=== PATIENT | female | born 1940 | race Caucasian/White ===

== ENCOUNTER → 2018-11-09 12:39 | Outpatient (CLI) | payer MEDICARE, SELFPAY ==
--- NOTE | 2018-11-09 | XR_ITS ---
XR chest 2V HISTORY: ITS.REASON: PERSISTENT COUGH-- LTRIB PAIN ORDERING PHYSICIAN: Tuyet Urrutia PATIENT AGE: 78 years COMPARISON: 11/15/2007 FINDINGS: Unremarkable cardiovascular structures. There is an oval soft tissue density in the right suprahilar region measuring 4 x 2.8 cm consistent with a right upper lobe mass. Suspicious for neoplasm. Chest CT with contrast suggested for further evaluation. Surgical clips are present in the left axilla with increased density over both thoraces consistent with breast implants. IMPRESSION: 4 x 2.8 cm right suprahilar mass highly suspicious for neoplasm. Suggest CT with contrast for further evaluation.
== END ==
PROVIDERS: PCP Internal Medicine Adolescent Medicine; Visit Provider Nurse Practitioner Family
DX: R05 Cough (principal); R07.81 Pleurodynia
CPT/HCPCS: 71046

== ENCOUNTER → 2018-11-11 14:38 | Outpatient (CLI) | payer MEDICARE, SELFPAY ==
--- NOTE | 2018-11-11 | CT_ITS ---
CT chest w con HISTORY: Lung mass, bronchitis with cough, abnormal chest x-ray ITS.REASON: LUNG MASS ORDERING PHYSICIAN: Tuyet Urrutia PATIENT AGE: 78 years COMPARISON: None TECHNIQUE: Axial images obtained following the administration of 75 mL of Optiray 350 . Sagittal, and coronal reformatted images are also generated and reviewed. All CT scans at the facility use one or more dose reduction, viz: automated exposure control, ma/kV adjustment per patient size (including targeted exams where dose is matched to indication, i.e. head), or iterative reconstruction technique. FINDINGS: There are bilateral subpectoral breast implants. There are scattered small nodes in the mediastinum measuring up to 1.4 x 1.1 cm in the precarinal region. Coronary artery calcifications are present. There is normal heart size with no evidence of pericardial effusion. No obvious axillary or supraclavicular adenopathy. There is a spiculated right upper lobe mass which measures up to 3.9 cm AP, 3.3 cm transverse, and 3.2 cm cephalad to caudad. The mass has spiculations which extend to the chest wall anteriorly and to the right hilum posteriorly. There are some coarse calcifications within the mass. This abuts the right minor fissure and may actually extend into the superior aspect of the right middle lobe with some spiculations extending into the superior aspect of the right middle lobe. This is highly suspicious for lung cancer. There is thickening along the minor fissure laterally may be due to some subpleural atelectasis. There are scattered calcified granulomas in both lungs. Fibrotic or atelectatic changes present in the left lower lobe. No pleural effusions. Upper abdominal images show irregular contour of the liver consistent with cirrhosis. There are a few periportal lymph nodes present measuring up to 2 x 1.2 cm. IMPRESSION: 1. Spiculated 3.9 x 3.3 cm right upper lobe mass with extension into the minor fissure and with spiculations into the superior aspect of the right middle lobe. This is highly suspicious for lung cancer. The lesion occludes the anterior segmental bronchus of the right upper lobe and should be readily accessible for biopsy via bronchoscopy and would NOT be safely accessible by percutaneous CT directed biopsy. 2. There is a borderline sized mediastinal lymph node at 1.4 x 1 cm.. No obvious hilar adenopathy 3. Upper abdominal images suggests cirrhosis
[2018-11-11 15:27] LABS: Blood Urea Nitrogen 19 mg/dL (7-18); Estimated Glomerular Filt Rate 69 ml/min (>60); GFR (African American) 84 ML/MIN (>60)
== END ==
PROVIDERS: Visit Provider Nurse Practitioner Family
DX: R91.8 Other nonspecific abnormal finding of lung field (principal)
CPT/HCPCS: 36415; 71260; 82565; 84520; Q9967

== ENCOUNTER 2019-06-21 10:08 | Outpatient (RCR) | payer MEDICARE, SELFPAY | END 2019-06-21 10:10 | disposition home or self-care (01) | LOC: PT 10:08 | PROVIDERS: Visit Provider Thoracic Surgery (Cardiothoracic Vascular Surgery) | DX: C34.90 Malignant neoplasm of unspecified part of unspecified bronchus or lung (principal) | CPT/HCPCS: G0237; G0238 ==

== ENCOUNTER → 2019-07-10 09:11 | Outpatient (CLI) | payer MEDICARE, SELFPAY ==
--- NOTE | 2019-07-10 09:38 | CT_ITS ---
PROCEDURE: CT ABDOMEN PELVIS W CON CLINICAL INDICATION: LUNG CANCER Follow-up lung cancer COMPARISON: No exams were available for comparison TECHNIQUE: IV Contrast: 75ML OPTIRAY 350 Oral Contrast the none Axial images obtained with sagittal and coronal reformats. All CT scans at the facility use one or more dose reduction, viz: automated exposure control, ma/kV adjustment per patient size (including targeted exams where dose is matched to indication, i.e. head), or iterative reconstruction technique. FINDINGS: LOWER THORAX: Please see chest CT report for lower thorax descriptions ABDOMEN & PELVIS: The liver margin is irregular with mild prominence of the left hepatic lobe consistent with cirrhosis. No focal liver lesion is evident. There is a gallstone noted The spleen, adrenal glands, and pancreas have an unremarkable appearance. No renal or ureteral calculi. There is a cyst along the lower pole of the left kidney at 2.3 cm. No intestinal obstruction or free air is evident. No evidence appendicitis. There is diverticulosis of the descending and sigmoid colon but no evidence of diverticulitis. No adenopathy. No abdominal or pelvic mass or abnormal fluid collection. No bony destructive process. No lytic or blastic change. 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 angiogram may confirm. Calcific plaque is present at the ostium of the celiac artery. IMPRESSION: 1. No convincing evidence of abdominal or pelvic metastasis. 2. Cirrhotic appearance of the liver. 3. 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 angiogram may better delineate if clinically desired. Dictated by: Johnnie Bush MD 07/12/2019 06:25 Electronically signed by Johnnie Bush MD in [place] 07/12/2019 06:25
--- NOTE | 2019-07-10 09:38 | CT_ITS ---
PROCEDURE: CT CHEST W CON CLINCAL INDICATION: LUNG CANCER Follow-up lung cancer COMPARISON: CHESTW CT chest w con from 11/11/2018 CT ABDOMEN PELVIS W CON from 07/10/2019 TECHNIQUE: IV Contrast: 75ml Optiray 350 Axial images obtained with sagittal and coronal reformats. All CT scans at the facility use one or more dose reduction, viz: automated exposure control, ma/kV adjustment per patient size (including targeted exams where dose is matched to indication, i.e. head), or iterative reconstruction technique. FINDINGS: There is a 10 mm hypodense nodule in the right lobe of the thyroid gland. There has been an interval right upper lobectomy. Loculated fluid is present in the pleural space in the right upper hemithorax posteriorly. There is volume loss of the right hemithorax with elevated right hemidiaphragm as expected status post lobectomy. Small right pleural effusion is present with atelectatic changes in the right lung base. Changes of COPD noted. Irregular linear increased density is present in the upper lung vickers medially on both sides and may be related to postradiation changes. Volume loss/atelectatic changes also a consideration. No obvious mediastinal or hilar adenopathy. Coronary artery calcifications are present. No evidence of aortic aneurysm. There is mild thickening of the interstitium in the subpleural regions of the left upper lobe and left lower lobe. This is nonspecific. No suspicious new nodules are evident. Status post prior breast implant placement. There is an area of sclerosis involving the right 8th rib laterally. This could be due to a healing rib fracture.. This is not readily apparent on the previous exam. Cannot exclude the possibility of a blastic focus. Continued follow-up suggested. IMPRESSION: 1. Interval right upper lobectomy with postsurgical changes as described above. 2. Increased density in the medial aspect of the upper lung vickers which may be due to postradiation changes or atelectasis. 3. Sclerotic focus in the right 8th rib laterally which could be due to healing rib fracture or an early blastic lesion. Dictated by: Johnnie Bush MD 07/12/2019 06:18 Electronically signed by Johnnie Bush MD in [place] 07/12/2019 06:18
[2019-07-10 09:55] LABS: Basophils # 0.1 K/mm3 (0-0.2); Basophils % 0.6 % (0.1-2.0); Eosinophils # 0.4 K/mm3 (0.0-0.4); Eosinophils % 5.1 % (0.1-12.0); Hematocrit 42.5 % (37.0-47.0); Hemoglobin 13.4 g/dL (12.2-16.2); Lymphocytes % 24.7 % (10-50); Mean Corpuscular HGB Conc 31.5 g/dL (31.8-35.4); Mean Corpuscular Volume 92.4 fl (81-99); Mean Platelet Volume 7.9 fl (7.4-10.4); Monocytes # 0.5 K/mm3 (0.1-1.0); Monocytes % 5.6 % (1.7-9.3); Neutrophils # 5.3 K/mm3 (1.8-7.8); Neutrophils % 64.1 % (37.0-80.0); Platelet Count 267 K/mm3 (142-424); Red Cell Distribution Width 15.7 % (11.5-17.5); White Blood Count 8.3 K/mm3 (4.8-10.8)
[2019-07-10 10:30] LABS: Alanine Aminotransferase 25 U/L (12-78); Albumin Level 3.5 gm/dL (3.4-5.0); Albumin/Globulin Ratio 0.9 (1.1-1.8); Alkaline Phosphatase 137 U/L (46-116); Aspartate Amino Transferase 26 U/L (15-37); Bilirubin,Total 0.4 mg/dL (0.2-1.0); Blood Urea Nitrogen 13 mg/dL (7-18); Calcium 9.3 mg/dL (8.5-10.1); Carbon Dioxide 29 mmol/L (21.0-32.0); Chloride 101 mmol/L (98-107); Creatinine,Serum 0.65 mg/dL (0.55-1.02); Estimated Glomerular Filt Rate 88 ml/min (>60); GFR (African American) 106 ML/MIN (>60); Globulin 4.1 gm/dl (1.3-3.2); Glucose 96 mg/dL (74-106); Sodium 139 mmol/L (136-145); Total Protein,Serum 7.6 gm/dL (6.4-8.2)
== END ==
PROVIDERS: PCP Internal Medicine Adolescent Medicine; Visit Provider Internal Medicine
DX: C34.01 Malignant neoplasm of right main bronchus (principal)
CPT/HCPCS: 36415; 71260; 74177; 80053; 85025; Q9967

== ENCOUNTER → 2019-09-05 07:54 | Outpatient (CLI) | payer MEDICARE, SELFPAY ==
[2019-09-05 08:12] LABS: Basophils # 0.1 K/mm3 (0-0.2); Basophils % 0.8 % (0.1-2.0); Eosinophils # 0.4 K/mm3 (0.0-0.4); Eosinophils % 4.1 % (0.1-12.0); Hematocrit 42.2 % (37.0-47.0); Hemoglobin 13.6 g/dL (12.2-16.2); Lymphocytes # 2.3 K/mm3 (0.7-4.5); Lymphocytes % 26.4 % (10-50); Mean Corpuscular HGB Conc 32.2 g/dL (31.8-35.4); Mean Corpuscular Hemoglobin 29.4 pg (27.0-31.2); Mean Corpuscular Volume 91.3 fl (81-99); Monocytes # 0.5 K/mm3 (0.1-1.0); Monocytes % 5.6 % (1.7-9.3); Neutrophils # 5.4 K/mm3 (1.8-7.8); Neutrophils % 63.1 % (37.0-80.0); Platelet Count 322 K/mm3 (142-424); Red Blood Count 4.62 M/mm3 (4.20-5.40); White Blood Count 8.5 K/mm3 (4.8-10.8)
[2019-09-05 08:26] LABS: Activated Partial Thrombo Time 25.2 seconds (23.6-34.0); INR 0.95 (0.9-1.1); Prothrombin Time 9.9 seconds (9.4-11.8)
[2019-09-05 09:04] LABS: Blood Urea Nitrogen 15 mg/dL (7-18); Calcium 9.4 mg/dL (8.5-10.1); Carbon Dioxide 25 mmol/L (21.0-32.0); Chloride 103 mmol/L (98-107); Creatinine,Serum 0.76 mg/dL (0.55-1.02); Estimated Glomerular Filt Rate 73 ml/min (>60); GFR (African American) 89 ML/MIN (>60); Glucose 110 mg/dL (74-106); Sodium 139 mmol/L (136-145)
== END ==
PROVIDERS: Visit Provider Surgery
DX: Z01.812 Encounter for preprocedural laboratory examination (principal); Z51.81 Encounter for therapeutic drug level monitoring
CPT/HCPCS: 36415; 80048; 85025; 85610; 85730

== ENCOUNTER → 2019-09-26 15:27 | Outpatient (POV) | payer MEDICARE, SELFPAY | PROVIDERS: Visit Provider Dermatology | DX: Z00.00 Encounter for general adult medical examination without abnormal findings (principal) ==

== ENCOUNTER → 2019-10-05 07:12 | Outpatient (CLI) | payer MEDICARE, SELFPAY ==
[2019-10-05 07:54] LABS: Basophils # 0.1 K/mm3 (0-0.2); Basophils % 0.6 % (0.1-2.0); Eosinophils # 0.3 K/mm3 (0.0-0.4); Eosinophils % 3.3 % (0.1-12.0); Hematocrit 42.1 % (37.0-47.0); Hemoglobin 13.3 g/dL (12.2-16.2); Lymphocytes # 1.8 K/mm3 (0.7-4.5); Lymphocytes % 19.3 % (10-50); Mean Corpuscular HGB Conc 31.7 g/dL (31.8-35.4); Mean Corpuscular Hemoglobin 29.8 pg (27.0-31.2); Mean Corpuscular Volume 93.9 fl (81-99); Monocytes # 0.5 K/mm3 (0.1-1.0); Monocytes % 5.1 % (1.7-9.3); Neutrophils # 6.8 K/mm3 (1.8-7.8); Neutrophils % 71.7 % (37.0-80.0); Platelet Count 284 K/mm3 (142-424); Red Blood Count 4.48 M/mm3 (4.20-5.40); Red Cell Distribution Width 14.2 % (11.5-17.5); White Blood Count 9.4 K/mm3 (4.8-10.8)
[2019-10-05 08:55] LABS: Alanine Aminotransferase 31 U/L (9-52); Albumin Level 3.5 g/dL (3.4-5.0); Albumin/Globulin Ratio 0.9 (1.1-1.8); Alkaline Phosphatase 124 U/L (46-116); Anion Gap 17.5 mEq/L (5-15); Aspartate Amino Transferase 24 U/L (15-37); Bilirubin,Total 0.4 mg/dL (0.2-1.0); Blood Urea Nitrogen 23 mg/dL (7-18); Calcium 9.2 mg/dL (8.5-10.1); Carbon Dioxide 26 mmol/L (21.0-32.0); Chloride 106 mmol/L (98-107); Estimated Glomerular Filt Rate 69 ml/min (>60); GFR (African American) 84 ML/MIN (>60); Globulin 3.9 gm/dl (1.3-3.2); Glucose 117 mg/dL (74-106); Potassium 4.5 mmoL/L (3.5-5.1); Sodium 145 mmol/L (137-145); Total Protein,Serum 7.4 g/dL (6.4-8.2)
== END ==
PROVIDERS: PCP Nurse Practitioner Family; Visit Provider Internal Medicine
DX: C34.01 Malignant neoplasm of right main bronchus (principal)
CPT/HCPCS: 36415; 80053; 85025

== ENCOUNTER → 2019-10-06 08:41 | Outpatient (CLI) | payer MEDICARE, SELFPAY ==
--- NOTE | 2019-10-06 08:45 | CT_ITS ---
PROCEDURE: CT SOFT TISSUE NECK W CON CLINICAL HISTORY: LUNG CANCER, ENLARGED LYMPH NODES Lung cancer, evaluate for possible metastatic disease in the neck with palpable nodule in the neck COMPARISON: No exams were available for comparison TECHNIQUE: Oral Contrast: None IV Contrast: 50 mL Optiray 350 Axial images obtained with sagittal and coronal reformats. All CT scans at the facility use one or more dose reduction, viz: automated exposure control, ma/kV adjustment per patient size (including targeted exams where dose is matched to indication, i.e. head), or iterative reconstruction technique. FINDINGS: A BB is placed along the left neck marking a palpable abnormality. No adenopathy or neck mass is evident. No mass evident deep to the placed BB. There is minimal asymmetry with some fullness at the base of the tongue on the left. Correlation with direct visualization is suggested. No discrete mass. The nasopharynx has an unremarkable appearance as does the larynx. There are degenerative changes in the cervical spine. IMPRESSION: 1. Minimal fullness of the base of the tongue on the left. This is nonspecific. Correlation with physical exam is suggested. 2. Otherwise negative CT scan of the neck Dictated by: Johnnie Bush MD 10/08/2019 08:07 Electronically signed by Johnnie Bush MD in [place] 10/08/2019 08:07
--- NOTE | 2019-10-06 08:45 | CT_ITS ---
PROCEDURE: CT ABDOMEN PELVIS W CON CLINICAL INDICATION: LUNG CANCER Follow-up lung cancer COMPARISON: CT ABDOMEN PELVIS W CON from 07/10/2019 CT CHEST W CON from 10/06/2019 TECHNIQUE: IV Contrast: 50ml Optiray 350 Oral Contrast none Axial images obtained with sagittal and coronal reformats. All CT scans at the facility use one or more dose reduction, viz: automated exposure control, ma/kV adjustment per patient size (including targeted exams where dose is matched to indication, i.e. head), or iterative reconstruction technique. FINDINGS: LOWER THORAX: Please see chest CT report ABDOMEN & PELVIS: The liver has an irregular contour consistent with cirrhosis. No focal liver lesions are evident. The spleen, adrenal glands, and pancreas have an unremarkable appearance. There is a 2.4 cm cyst along the lower pole of the left kidney unchanged. No intestinal obstruction or free air. There is a mild amount of retained colonic feces. No evidence of appendicitis. There is diverticulosis of the sigmoid colon but no evidence of diverticulitis. No acute bony anomalies are evident. Ostial stenosis of the celiac artery once again noted. IMPRESSION: Overall no significant change with no convincing evidence of metastatic disease. Dictated by: Johnnie Bush MD 10/08/2019 08:27 Electronically signed by Johnnie Bush MD in [place] 10/08/2019 08:27
--- NOTE | 2019-10-06 08:45 | CT_ITS ---
PROCEDURE: CT CHEST W CON CLINCAL INDICATION: LUNG CANCER Follow-up lung cancer COMPARISON: CT CHEST W CON from 07/10/2019 CT ABDOMEN PELVIS W CON from 10/06/2019 TECHNIQUE: IV Contrast: 50 mL Optiray 350 Axial images obtained with sagittal and coronal reformats. All CT scans at the facility use one or more dose reduction, viz: automated exposure control, ma/kV adjustment per patient size (including targeted exams where dose is matched to indication, i.e. head), or iterative reconstruction technique. FINDINGS: HEART AND MEDIASTINAL STRUCTURES: Small 1 cm nodule in the right lobe of the thyroid gland once again noted probably not significantly changed. There is coronary artery calcifications with normal heart size. No evidence of pericardial effusion. No mediastinal or hilar mass. LUNGS AND PLEURAL SPACES: COPD. Postsurgical changes from right upper lobectomy with some residual pleural thickening in the right apex posteriorly. There is some scarring in the right lower lobe medially. Fibrotic changes are present in the lingula in the superior segment of the left lower lobe. No developing pulmonary nodules apparent. No effusions BONY STRUCTURES: No acute bony abnormalities apparent. UPPER ABDOMEN: Please see abdomen report ADDITIONAL FINDINGS: Bilateral breast prosthesis remain in place IMPRESSION: 1. Overall stable CT appearance of the chest. Postsurgical changes from right upper lobectomy with COPD and scattered areas of scarring. Dictated by: Johnnie Bush MD 10/08/2019 08:19 Electronically signed by Johnnie Bush MD in [place] 10/08/2019 08:19
== END ==
PROVIDERS: PCP Nurse Practitioner Family; Visit Provider Internal Medicine
DX: C34.01 Malignant neoplasm of right main bronchus (principal)
CPT/HCPCS: 70491; 71260; 74177; Q9967

== ENCOUNTER → 2020-04-30 09:52 | Outpatient (POV) | payer MEDICARE, SELFPAY | PROVIDERS: Visit Provider Dermatology | DX: Z00.00 Encounter for general adult medical examination without abnormal findings (principal) ==

== ENCOUNTER → 2020-05-21 13:26 | Outpatient (POV) | payer MEDICARE, SELFPAY | PROVIDERS: Visit Provider Dermatology | DX: Z00.00 Encounter for general adult medical examination without abnormal findings (principal) ==

== ENCOUNTER 2021-03-13 13:42 | Emergency (ER) | payer MEDICARE, SELFPAY ==
[2021-03-13 14:44] VITALS: PULSE 118; RESP 18; TEMP 37.1; O2SAT 97; BMI 28.3
[2021-03-13 15:04] VITALS: BP 000/00; PULSE 118; RESP 18; TEMP 37.1
--- NOTE | 2021-03-13 15:05 | PC.NURSE ---
pt refuses a bp reading.
--- NOTE | 2021-03-13 15:07 | HMH.EDUTC ---
[facility] [place] Clinical Impression: Skin tear of left lower leg without complication Qualifiers: Encounter type: initial encounter Qualified Code(s): S81.812A - Laceration without foreign body, left lower leg, initial encounter Disposition: Home, Self-Care Condition on Discharge: Good Instructions: DI for Avulsion Laceration (Not Requiring Sutures) Additional Instructions: Keep the affected area clean and dry. Follow up with your regular doctor. apply the topical antibiotics (mupirocin) as directed. Discuss the antibiotic ointment (mupirocin) with your pharmacist. I worry about you extensive allergies. If the pharmacist has any recommendations they could call me here to get an order. GO TO THE ER FOR ANY WORSENING SYMPTOMS Prescriptions: Mupirocin [Bactroban 2% Ointment 22gm tube] 1 applicatio TP TID 7 Days #1 tube Transmission Status: Received by [id number] Referrals: Tuyet Urrutia APRN [Primary Care Provider] - Time of Disposition: 15:13 Medical Decision Making - Medical Records Medical records reviewed: No: I reviewed the patient's medical records. - Peterson Inquiry Pt receiving controlled substance: No Vital Signs: 03/13/21 14:44 03/13/21 15:04 Temperature 98.7 F 98.7 F Temperature Source Oral Pulse Rate 118 H Pulse Rate [Left] 118 H Respiratory Rate 18 18 Blood Pressure 000/00 L 02 Sat by Pulse Oximetry 97 Medical Decision Narrative: The wound was cleansed with sterile ns. It only involves the top layer of skin. No redness, drainage, swelling or other sign of infection is noted. [facility] [place] - General Stated complaint: fall 03/11 lt monterroso bleeding Time Seen by Provider: 03/13/21 14:55 Mode of Arrival: Ambulatory Source of Information: Patient Limitations: No Limitations Description of Symptoms (Recalled from Triage Doc. by RN): pt fell down wooden steps tues. afternoon. she presents with a lac on her L leg HEENT Symptoms (Recalled from RN notes): No Resp Symptoms (Recalled from RN notes): No Skin Symptoms (Recalled from RN notes): Yes (lac to L leg) MS Symptoms (Recalled from RN notes): No Functional Status (Recalled from RN notes): na - History of Present Illness Provider Complaint: She states that she fell 4 days ago and received a skin tear to her left monterroso area. She is here to have it checked because it has continued to ooze blood without a dressing on it. She is also worried about it being infected. She denies other injury. She states that her tetanus immunization is up to date and she thinks that she is allergic to tetanus shots anyway. - Related Data Previous Rx's Medication Instructions Recorded Mupirocin [Bactroban 2% Ointment 1 applicatio TP TID 7 Days #1 tube 03/13/21 22gm tube] - Worker's Comp Is this a Worker's Comp case?: No [facility] History - Hepatitis A Screen Drug use history?: No High risk sexual behaviors?: No History of sexually transmitted infection?: No Currently employed?: No Childcare worker?: No Do you have indoor plumbing?: Yes Do you have electricity?: Yes Attestation statement:: This patient has been screened for Hepatitis A risk factors. I have reviewed the patient's past medical history: Yes ROS Obtained: Yes All systems reviewed & no additional complaints - Constitutional Constitutional: Denies chills, Denies fever(s) - Musculoskeletal Musculoskeletal: Denies joint pain, Denies back pain - Integumentary/Breasts Skin/Breast: Reports as per HPI - Neurologic Neurologic: Denies tingling/numbness/burning sensations Physical Exam - General General appearance: alert, in no apparent distress - Head Head exam: atraumatic, normocephalic, normal inspection - Eye Eye exam: Present: normal appearance, PERRL, EOMI - ENT ENT exam: Present: normal exam, normal oropharynx, mucous membranes moist, TM's normal bilaterally, normal external ear exam - Neck Neck exam: Present: normal inspection, full
== END 2021-03-13 15:24 | disposition home or self-care (01) ==
PROVIDERS: Emergency Provider Nurse Practitioner Family; PCP Nurse Practitioner Family
DX: S81.812A Laceration without foreign body, left lower leg, initial encounter (principal); W10.9XXA Fall (on) (from) unspecified stairs and steps, initial encounter; Y92.019 Unspecified place in single-family (private) house as the place of occurrence of the external cause
CPT/HCPCS: G0463; 99202

== ENCOUNTER 2021-06-15 14:20 | Inpatient (IN) | payer MEDICARE, SELFPAY ==
--- NOTE | 2021-06-15 13:58 | ECG_ITS ---
APPROVED REPORT Exam: Resting ECG HR:131 bpm ECG Measurements Heart Rate 131 AXES VT 154 P 74 QRSd 76 QRS -79 QT 290 T 63 QTc 428 Conclusion Sinus tachycardia Possible Left atrial enlargement Pulmonary disease pattern RSR' or QR pattern in V1 suggests right ventricular conduction delay Left anterior fascicular block ST elevation, consider inferior injury or acute infarct ACUTE AK Consider right ventricular involvement in acute inferior infarct Abnormal ECG Electronically signed by : Winston Roman MD 06/15/2021 20:29:21
[2021-06-15 14:07] VITALS: PULSE 127; RESP 36; TEMP 36.8; O2SAT 80; BMI 28.3
--- NOTE | 2021-06-15 14:30 | CT_ITS ---
PROCEDURE INFORMATION: Exam: CTA Chest With Contrast Exam date and time: 06/15/2021 2:30 PM Age: 81 years old Clinical indication: Dyspnea and shortness of breath; Additional info: Dyspnea and hypoxia// previous breast cancer TECHNIQUE: Imaging protocol: Computed tomographic angiography of the chest with contrast. 3D rendering (Not supervised by radiologist): MIP and/or 3D reconstructed images were created by the technologist. Radiation optimization: All CT scans at this facility use at least one of these dose optimization techniques: automated exposure control; mA and/or kV adjustment per patient size (includes targeted exams where dose is matched to clinical indication); or iterative reconstruction. Contrast material: ISOVUE 370; Contrast volume: 75 ml; Contrast route: INTRAVENOUS (IV); COMPARISON: CT CHEST W CON 10/06/2019 9:18 AM FINDINGS: Pulmonary arteries: There are extensive pulmonary emboli in the right and left distal main pulmonary arteries and throughout their branches which are distended with thrombus. Aorta: No thoracic aortic aneurysm or dissection.There is calcified atheromatous plaque in the thoracic aorta and coronary arteries. Lungs: Right upper lobectomy is again noted with stable pleuroparenchymal scarring posteriorly at the apex. Pleuroparenchymal scarring is again seen superior segment of left lower lobe. Pleural spaces: Unremarkable. No pneumothorax. No pleural effusion. Heart: There is evidence of right ventricular strain. No significant cardiomegaly or pericardial effusion. Lymph nodes: Unremarkable. No enlarged lymph nodes. Liver: Possible cirrhosis due to lobulated hepatic margin. Bones/joints: Skeletal degeneration. Soft tissues: Left mastectomy, bilateral breast prostheses and left axillary clips. IMPRESSION: Extensive bilateral pulmonary emboli including the right and left main pulmonary arteries with evidence of right heart strain.
--- NOTE | 2021-06-15 14:49 | PC.NURSE ---
Pt placed on vapotherm from [facility] per 20L 60%
[2021-06-15 15:34] LABS: Coronavirus 19, PCR Not Detected (NotDetected); Influenza A, PCR Not Detected (NotDetected); Influenza B, PCR Not Detected (NotDetected)
[2021-06-15 15:40] LABS: Basophils # 0.1 K/mm3 (0-0.2); Basophils % 0.6 % (0.1-2.0); Eosinophils % 0.2 % (0.1-12.0); Hematocrit 45.8 % (37.0-47.0); Hemoglobin 14.9 g/dL (12.2-16.2); Lymphocytes # 1.8 K/mm3 (0.7-4.5); Lymphocytes % 11.4 % (10-50); Mean Corpuscular HGB Conc 32.5 g/dL (31.8-35.4); Mean Corpuscular Volume 95.4 fl (81-99); Mean Platelet Volume 9.2 fl (7.4-10.4); Monocytes # 0.8 K/mm3 (0.1-1.0); Monocytes % 4.8 % (1.7-9.3); Neutrophils # 13.1 K/mm3 (1.8-7.8); Platelet Count 256 K/mm3 (142-424); Red Cell Distribution Width 14.5 % (11.5-17.5); White Blood Count 15.8 K/mm3 (4.8-10.8)
[2021-06-15 15:43] LABS: Chloride 101 mmol/L (98-107); MANUAL DIFFERENTIAL MANUAL DIFFERENTIAL (MANUAL DIFF); Potassium 4.3 mmoL/L (3.5-5.1); Sodium 139 mmol/L (136-145)
[2021-06-15 15:45] LABS: Alanine Aminotransferase 22 U/L (12-78); Aspartate Amino Transferase 34 U/L (14-36); Blood Urea Nitrogen 14 mg/dl (7-17); Creatinine Clearance Estimated 54 mL/min (50-200); Estimated Glomerular Filt Rate 69 ml/min (>60); GFR (African American) 83 ML/MIN (>60)
[2021-06-15 15:46] LABS: Albumin Level 4.1 g/dl (3.5-5.0); Albumin/Globulin Ratio 1.2 (1.1-1.8); Alkaline Phosphatase 131 U/L (38-126); Anion Gap 18.3 mEq/L (5-15); Bilirubin,Total 0.5 mg/dl (0.2-1.3); Calcium 8.9 mg/dl (8.4-10.2); Carbon Dioxide 24 mmol/L (22.0-30.0); Globulin 3.3 g/dL (1.3-3.2); Glucose 252 mg/dl (74-100); Total Protein,Serum 7.4 g/dl (6.3-8.2)
[2021-06-15 15:53] LABS: Lymphocytes % 16 % (10-50); Monocytes % 7 % (2-9); Neutrophils % 77 % (42-76); Platelet Estimate Normal; RBC Morphology Normal; Total Cells Counted 100
[2021-06-15 16:11] LABS: Troponin I 0.32 ng/ml (0.00-0.034)
[2021-06-15 16:16] LABS: Thyroid Stimulating Hormone 2.04 uIU/mL (0.465-4.68)
[2021-06-15 17:10] LABS: Prothrombin Time 11.3 seconds (10.1-12.5)
--- NOTE | 2021-06-15 17:43 | HMH.EDGENADL ---
ED Disposition Clinical Impression: Pulmonary embolism Qualifiers: Pulmonary embolism type: other Chronicity: acute Acute cor pulmonale presence: without acute cor pulmonale Qualified Code(s): I26.99 - Other pulmonary embolism without acute cor pulmonale Disposition: Admitted As Inpatient Condition on Discharge: Fair Referrals: Tuyet Urrutia APRN [Primary Care Provider] - - Critical Care Critical Care Time: No Attestation: On 06/15/21, the high probability of a clinically significant, sudden or life threatening deterioration of the following system(s) required my full and direct attention, intervention and personal management. The time I documented below is in addition to time spent performing reported procedures but includes the following listed in this critical care notation. Medical Decision Making - Peterson Inquiry Pt receiving controlled substance: No Vital Signs: 06/15/21 14:07 Temperature 98.2 F Temperature Source Oral Pulse Rate [Right Radial] 127 H Respiratory Rate 36 H 02 Sat by Pulse Oximetry 80 L Oxygen Delivery Method Room Air - Lab Data Lab Results 06/15/21 14:05: SARS-CoV-2 (PCR) Not detected, Influenza A Untype (PCR) Not detected, Influenza Type B (PCR) Not detected 06/15/21 14:45: WBC 15.8 H, RBC 4.80, Hgb 14.9, Hct 45.8, MCV 95.4, MCH 31.0, MCHC 32.5, RDW 14.5, Plt Count 256, MPV 9.2, Neut % (Auto) 83.0 H, Lymph % (Auto) 11.4, [place] % (Auto) 4.8, Eos % (Auto) 0.2, Baso % (Auto) 0.6, Neut # (Auto) 13.1 H, Lymph # (Auto) 1.8, [place] # (Auto) 0.8, Eos # (Auto) 0.0, Baso # (Auto) 0.1, Total Counted 100, Neutrophils % (Manual) 77 H, Lymphocytes % (Manual) 16, Monocytes % (Manual) 7, Platelet Estimate Normal, RBC Morphology Normal 06/15/21 14:45: Troponin I 0.32 H 06/15/21 14:45: Sodium 139, Potassium 4.3, Chloride 101, Carbon Dioxide 24, Anion Gap 18.3 H, BUN 14, Creatinine 0.80, Estimated Creat Clear 54, Estimated GFR 69, Est GFR ( Amer) 83, Glucose 252 H, Calcium 8.9, Total Bilirubin 0.5, AST 34, ALT 22, Alkaline Phosphatase 131 H, Total Protein 7.4, Albumin 4.1, Globulin 3.3 H, Albumin/Globulin Ratio 1.2, TSH 2.04 06/15/21 14:45: PT 11.3, INR 1.00 Result diagrams: 06/15/21 14:45 06/15/21 14:45 Orders (Tests/Meds): ED MEDICATIONS Discontinued Medications Generic Name Dose Route Start Last Admin Trade Name Freq PRN Reason Stop Dose Admin Heparin Sodium (Porcine) 7,700 unit 06/15/21 16:43 Heparin Sodium 5,000 Unit/Ml Vial 100 unit/kg (7700 unit) 06/15/21 16:44 IV ONCE ONE Lactated Ringer's 1,710 mls @ 855 mls/hr 06/15/21 14:31 06/15/21 14:34 Lactated Ringer's 1000 Ml Bag 30 ml/kg infuse over 2 hr (1710 ml) 06/15/21 16:30 Not Given IV .Q2H ONE Lactated Ringer's 1,000 mls @ 999 mls/hr 06/15/21 14:45 06/15/21 14:50 Lactated Ringer's 1000 Ml Bag IV 06/15/21 15:45 999 mls/hr .Q1H1M FREDDY Administration Iopamidol 75 ml 06/15/21 16:02 06/15/21 16:03 Iopamidol-370 (76%);100ml Bottle IV 06/15/21 16:03 75 ml ONCE ONE Administration Sodium Chloride 50 ml 06/15/21 16:02 06/15/21 16:03 0.9 % Sodium Chloride 50 Ml Vial IV 06/15/21 16:03 50 ml ONCE ONE Administration Sodium Chloride 10 ml 06/15/21 16:02 06/15/21 16:03 Sodium Chloride 0.9% 10ml Syr (Rad Only) IV 06/15/21 16:03 10 ml ONCE ONE Administration ORDERS Category Date Time Status Troponin I Q3H Lab 06/15/21 17:30 Ordered Troponin I Q3H Lab 06/15/21 20:30 Ordered Blood Culture Stat Micro 06/15/21 14:45 Ordered Medical Decision Narrative: In summary, the patient is an 81-year-old female presenting for evaluation of progressive dyspnea and hypoxia by EMS transport from home. She is in acute respiratory distress with tachypnea, 2 word dyspnea, symmetric and clear breath sounds bilaterally with hypoxia in the 80s on room air, mid 90s on nonrebreather mask. Physical exam demonstrates an uncomfortable appearing female with normal cardiac exam, soft
[2021-06-15 18:37] VITALS: BMI 28.8
[2021-06-15 18:53] LABS: Activated Partial Thrombo Time 23.9 seconds (22.8-30.6)
[2021-06-15 19:07] VITALS: BP 129/76; PULSE 117; RESP 28; TEMP 36.8; O2SAT 96
--- NOTE | 2021-06-15 19:18 | PC.NURSE ---
received report from bailey that patient report had been called and we were waiting on transport to floor.
[2021-06-15 19:21] LABS: Troponin I 0.28 ng/ml (0.00-0.034)
--- NOTE | 2021-06-15 19:21 | PC.NURSE ---
Trop reported to MD at this time. 0.28
[2021-06-15 20:00] VITALS: BP 130/84; PULSE 100; PULSE 117; RESP 20; RESP 32; TEMP 36.4; O2SAT 95; O2SAT 99
--- NOTE | 2021-06-15 20:06 | PC.NURSE ---
PT ARRIVED TO FLOOR VIA STRETCHER FROM W/STAFF AT 2005.
[2021-06-15 20:22] VITALS: PULSE 120
[2021-06-15 22:14] LABS: Troponin I 0.28 ng/ml (0.00-0.034)
[2021-06-15 23:45] VITALS: BP 120/74; PULSE 101; RESP 18; TEMP 36.5; O2SAT 99
[2021-06-16] VITALS (24 sets, daily range): BP systolic 91–230; BP diastolic 57–103; PULSE 100–125; RESP 18–22; TEMP 36.6–36.7; O2SAT 93–100; BMI 28.8
--- NOTE | 2021-06-16 | IR_ITS ---
APPROVED REPORT Patient Location: Inpatient Cat Tender: QI Oneal RT (R) PROCEDURES Right femoral venous access Catheter placement in the main pulmonary artery Bilateral pulmonary artery angiogram Selective engagement of the right main pulmonary artery with distal mechanical thrombectomy Selective engagement of the right pulmonary artery subsegmental branches with subsegmental mechanical thrombectomy Selective engagement of the left pulmonary artery with left pulmonary artery mechanical thrombectomy Selective engagement of the left pulmonary artery subsegmental branch with subsegmental artery mechanical thrombectomy INDICATION Acute on chronic submassive pulmonary embolism, Critical hypoxemia, Severe right ventricular dilatation Informed consent was obtained prior to the procedure. COMPLICATIONS none Estimated Blood Loss: less than 10 ml TECHNIQUE 1% lidocaine used anesthetize the right groin the right femoral vein was accessed via the Salinger technique and a 6 [place] sheath was placed in the right femoral vein. The pigtail catheter was placed under fluoroscopic guidance in the main pulmonary artery where pulmonary angiography was performed. Following this therapeutic heparin was administered and the 6 [place] sheath was exchanged for a 12 [place] sheath. The sheath was advanced over the wire along with an angled catheter into the right pulmonary artery right pulmonary artery thrombectomy was performed. The catheter was advanced into the subsegmental vessels where additional pulmonary artery embolectomy was performed. Repeat angiography demonstrated significant improvement with distal flow in the right lower lung field. This process was then repeated on the left side. At the end of the procedure selective bilateral angiography was performed. After achieving satisfactory results the sheath was removed and a Z stitch was placed in order to aid in hemostasis. The patient was transferred to the postop holding area and somewhat stable condition IMPRESSION Main pulmonary artery branches into the right and left main pulmonary artery The right pulmonary artery has distal thrombus which extends into the middle and inferior branch with near occlusion of the inferior branch The left pulmonary artery has a large thrombus in the superior aspect of the distal segment which come completely occludes the left upper lobe. The left inferior subsegmental branches also have a large thrombus. Successful partial thrombectomy of the bilateral right and left pulmonary arteries as well as bilateral subsegmental branches PLAN 1. Xarelto 15 twice daily for 3 weeks then 20 mg a day daily 2. Work-up for malignancy 3. Supportive care Electronically signed by : Steven Hunter MD 06/16/2021 13:40:31
--- NOTE | 2021-06-16 00:44 | PC.NURSE ---
2010- MD Elsa contacted this RN for pt. update and new orders: do not turn heparin gtt off without contacting first; pt. is to go to [facility] at 0800 06/16 for pulmonary artery embolectomy; tylenol 650mg po q6h prn; zofran 4 mg iv q8h prn. 2057- paged pharmacy [phone]- [facility] notified of ptt level 139. New orders: titrate heparin gtt to 1250 units/hr and draw ptt level at 0000 5- titrated gtt per pharmacy orders
--- NOTE | 2021-06-16 01:11 | PC.NURSE ---
0110- ptt 139; paged pharmacy [phone]- [facility] notified of ptt value. New orders: titrate heparin to 1000 units/hr and draw next ptt levels at 0600
[2021-06-16 06:52] LABS: Activated Partial Thrombo Time 51.5 seconds (22.8-30.6)
--- NOTE | 2021-06-16 07:28 | P.CONPHA_ITS ---
[facility] Pharmacy VTE Monitoring - Patient Demographics Admission date: 06/15/21 Report Date: 06/16/21 Time: 07:28 Allergies/Adverse Reactions: Patient Allergies No Known Allergies Allergy (Verified 06/15/21 14:27) Height: 1.65 m Weight: 78.471 kg Patient Problems: Current Active Problems Pulmonary embolism (Acute) - VTE Risk Labs: VTE Related Lab Results Hgb 14.9 g/dL (12.2-16.2) 06/15/21 14:45 Hct 45.8 % (37.0-47.0) 06/15/21 14:45 Plt Count 256 K/mm3 (142-424) 06/15/21 14:45 PT 11.3 seconds (10.1-12.5) 06/15/21 14:45 INR 1.00 (0.9-1.1) 06/15/21 14:45 APTT 51.5 seconds (22.8-30.6) H 06/16/21 06:00 BUN 14 mg/dl (7-17) 06/15/21 14:45 Creatinine 0.80 mg/dl (0.52-1.04) 06/15/21 14:45 Estimated Creat Clear 54 mL/min (50-200) 06/15/21 14:45 Was VTE Risk Assessment Performed: Yes VTE Score: 5 VTE Risk Level: Low Risk - Prophylaxis VTE Prophylaxis Ordered?: Yes Types of VTE Prophylaxis: TEDS Knee High, Pharmacological Location of Applied Device: Bilateral Lower Extremeties Pharmacologic Type: Heparin
--- NOTE | 2021-06-16 08:06 | HMH.CNCARD ---
History of Present Illness Consult date: 06/16/21 Requesting physician: Winston Roman Consult reason: shortness of breath Chief complaint: Bilateral PE Additional Medical History:: 1. History of left-sided breast cancer, 1987, status post mastectomy with multiple positive lymph nodes 2. History of right-sided breast cancer, 2011 status postmastectomy 3. history of lung cancer status post surgery, 2019 status post chemotherapy and radiation 4. 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 CT of the abdomen last week reportedly shows a new liver mass 5. Multiple drug intolerances due to nausea and vomiting (mostly related to sedation) 6. Bilateral pulmonary emboli, 06/15/2021 7. History of vaccinations not working per patient therefore she has never taken any vaccine since she was a kid. 8. Remote history of tobacco use from middle school till about age 40. History of present illness: 81-year-old white female with history of multiple cancers as noted above presented to the emergency department the insistence of her daughter yesterday due to 1 week history of hypoxemia and tachypnea. Patient was found to have bilateral pulmonary emboli and was started on IV anticoagulation with plans to proceed with pulmonary arteriogram and embolectomy today. Patient is on Vapotherm at 30 L with 70% FiO2 with oxygen saturation around 98-99%. Heart rate is in the 100 bpm range and patient is stable with some mild conversational dyspnea noted. Patient's daughter, Kay, is in the room Recent cataract surgery approximately 2 weeks ago with sedentary lifestyle then since then due to difficulty seeing and shortness of breath. Patient has noted some bilateral lower extremity leg discomfort but denies any lower extremity edema or swelling. Patient has no known history of Covid infection and she does not take vaccinations. [facility] History Medical History: Reports:: Cancer Denies:: Diabetes Mellitus Type 1, Diabetes Mellitus Type 2, MRSA *Have you ever received a pneumonia vaccine?: No *Have you received a flu vaccine this season?: No Other Medical History: Reports: Cataracts (CATARACT SURGERY), Chemotherapy, Liver Disease, Radiation Therapy Laterality Cases: Bilateral: Cataract, Mastectomy Other Surgeries: Yes: Cancer Surgery Amputation: No Fractures: No - *Social History Smoking Status: Former smoker Tobacco Type: cigarettes # Packs/Day (cigarettes): 2 #Yrs smoked (if former smoker): 40 Alcohol Intake: never *Occupational Status:: retired *Travel in the last 8 weeks: None Family Hx:: Stroke, Mental illness, Other Meds Home Medications Medication Instructions Recorded Confirmed Type prednisoLONE acetate [Pred Forte 1 drp EYE-BOTH QID 06/16/21 06/16/21 History 1% opth solution 5mL] Allergies Allergy/AdvReac Type Severity Reaction Status Date / Time No Known Allergies Allergy Verified 06/15/21 14:27 Exam Vital signs and Labs for Last 24 Hours: Temp Pulse Resp BP Pulse Ox 98 F 100 H 19 122/74 100 06/16/21 03:42 06/16/21 04:00 06/16/21 03:42 06/16/21 03:42 06/16/21 06:20 Laboratory Results - last 24 hr 06/15/21 14:05: SARS-CoV-2 (PCR) Not detected, Influenza A Untype (PCR) Not detected, Influenza Type B (PCR) Not detected 06/15/21 14:45: WBC 15.8 H, RBC 4.80, Hgb 14.9, Hct 45.8, MCV 95.4, MCH 31.0, MCHC 32.5, RDW 14.5, Plt Count 256, MPV 9.2, Neut % (Auto) 83.0 H, Lymph % (Auto) 11.4, [place] % (Auto) 4.8, Eos % (Auto) 0.2, Baso % (Auto) 0.6, Neut # (Auto) 13.1 H, Lymph # (Auto) 1.8, [place] # (Auto) 0.8, Eos # (Auto) 0.0, Baso # (Auto) 0.1, Total Counted 100, Neutrophils % (Manual) 77 H, Lymphocytes % (Manual) 16, Monocytes % (Manual) 7, Platelet Estimate Normal, RBC Morphology Normal 06/15/21 14:45: Troponin I 0.32 H 06/15/21 14:45: Sodium 139, Potassium 4.3, Chloride 101, Carbon Dioxide 24, Anion Gap 18.3 H, BUN 14, Creatinine 0.80, Estimated Creat Clear 54, Estimated GFR 69, Est GFR ( Amer) 83, Glucose 252 H, Calcium
--- NOTE | 2021-06-16 08:15 | HMH.PHAINT ---
MEDICATION RECONCILIATION COMPLETED ON PATIENT USING EXTERNAL FILL HISTORY FROM PHARMACY. -RAYSHAWN LARA, LEODAND
--- NOTE | 2021-06-16 08:55 | HMH.HP ---
*Admission Date: 06/15/21 *Chief complaint: Progressive dyspnea *History of present illness: In summary, the patient is an 81-year-old female presenting for evaluation of progressive dyspnea and hypoxia by EMS transport from home. She is in acute respiratory distress with tachypnea, 2 word dyspnea, symmetric and clear breath sounds bilaterally with hypoxia in the 80s on room air, mid 90s on nonrebreather mask. Physical exam demonstrates an uncomfortable appearing female with normal cardiac exam, soft nontender abdomen, normal extremity exam, normal peripheral perfusion. Differential diagnosis includes but is not limited to COVID-19, pneumonia, acute coronary syndrome, pulmonary embolism. We will place the patient on high flow nasal cannula for work of breathing and hypoxia, administer small bolus of IV fluids, obtain broad laboratory analysis, chest x-ray, CT pulmonary embolism and reassess clinically. Reassessment: Patient demonstrates significant improvement since being placed on high flow nasal cannula, 30 L, 60% FiO2. Tachycardia has improved, blood pressure still is within normal limits. Laboratory analysis demonstrates elevated troponin to 0.3, remainder of laboratory analysis unremarkable. CT PE demonstrates large bilateral pulmonary embolism with evidence of right heart strain. Cardiology was consulted, and they state the patient is appropriate for progressive admission with heparin bolus and infusion ordered, with plans to take to the supervisor dental laboratory for intervention in the morning. Care of the patient was discussed with her primary care physician and will admit to Dr. Roman after discussion with Dr. Fine for heparin drip, continued respiratory support and coordination of care needs related to submassive pulmonary embolism. Above note per ER physician. Additional history includes the patient has had several malignancies, bilateral mastectomy for breast cancer, right upper lobectomy for lung cancer and currently is being worked up for liver mass but has declined biopsy. Also is on medication for autoimmune hepatitis. Has had VTE in the remote past but is currently not on any anticoagulation medication. [facility] History I have reviewed the patient's past medical history: Yes Medical History: Reports:: Cancer Denies:: Diabetes Mellitus Type 1, Diabetes Mellitus Type 2, MRSA *Have you ever received a pneumonia vaccine?: No *Have you received a flu vaccine this season?: No Other Medical History: Reports: Cataracts (CATARACT SURGERY), Chemotherapy, Liver Disease, Radiation Therapy Comment:: Autoimmune liver disease, liver mass of uncertain etiology, history of lung cancer/breast cancer status post surgical resection, history of VTE Laterality Cases: Bilateral: Cataract, Mastectomy Other Surgeries: Yes: Cancer Surgery Amputation: No Fractures: No - *Social History Smoking Status: Former smoker Tobacco Type: cigarettes # Packs/Day (cigarettes): 2 #Yrs smoked (if former smoker): 40 Alcohol Intake: never *Occupational Status:: retired *Travel in the last 8 weeks: None Family Hx:: Stroke, Mental illness, Other Review of Systems - Review of Systems Review of systems:: pertinent systems reviewed and negative unless documented below Meds Home Medications Medication Instructions Recorded Confirmed Type prednisoLONE acetate [Pred Forte 1 drp EYE-BOTH QID 06/16/21 06/16/21 History 1% opth solution 5mL] Allergies Allergy/AdvReac Type Severity Reaction Status Date / Time No Known Allergies Allergy Verified 06/15/21 14:27 Exam Vital signs and Labs for Last 24 Hours: Temp Pulse Resp BP Pulse Ox 98.1 F 101 H 20 150/89 H 99 06/16/21 08:00 06/16/21 08:00 06/16/21 08:00 06/16/21 08:00 06/16/21 08:00 Laboratory Results - last 24 hr 06/15/21 14:05: SARS-CoV-2 (PCR) Not detected, Influenza A Untype (PCR) Not detected, Influenza Type B (PCR) Not detected 06/15/21 14:45: WBC 15.8 H, RBC 4.80, Hgb 14.9, Hct 45.8, MCV
--- NOTE | 2021-06-16 12:00 | HMH.ANESCL ---
[facility] Anesthesia Checklist - Patient Identification Patient Identification: Arm Band - Structural Data Admitted From: Inpatient Planned Operative Procedure/s: Pulmonary Angiogram Consent for Planned Operative Procedure(s) Verified: Yes Verified Documents: Surgical Consent, History and Physical - NPO Status Verified Time NPO: 00:00 - Additional verifications Anesthesia Reactions: Yes (ponv) - Airway Assessment C-Spine Mobility Assessed: Yes (mp2) TMJ Mobility Assessed: Yes Dentition: Good Dentition - Neurological Assessment Level of Consciousness: Awake, Alert - Anesthesia Plan Anesthesia Risk discussed: Yes Anesthesia Plan: Verified ASA Class: IV Anesthesia Type: [facility] History I have reviewed the patient's past medical history: Yes Medical History: Reports:: Cancer Denies:: Diabetes Mellitus Type 1, Diabetes Mellitus Type 2, MRSA *Have you ever received a pneumonia vaccine?: No *Have you received a flu vaccine this season?: No Other Medical History: Reports: Cataracts (CATARACT SURGERY), Chemotherapy, Liver Disease, Radiation Therapy Anesthesia experience/problems:: ponv Laterality Cases: Bilateral: Cataract, Mastectomy Other Surgeries: Yes: Cancer Surgery Amputation: No Fractures: No - *Social History Smoking Status: Former smoker Tobacco Type: cigarettes # Packs/Day (cigarettes): 2 #Yrs smoked (if former smoker): 40 Alcohol Intake: never Substance Use Type: denies use *Occupational Status:: retired *Travel in the last 8 weeks: None Family Hx:: Stroke, Mental illness, Other
--- NOTE | 2021-06-16 14:51 | PC.NURSE ---
PT IS RESTING IN BED WITH FAMILY AT BEDSIDE. PT'S ONLY COMPLAINT IS BEING VERY SOA WITH ANY TYPE OF EXERTION. STITCH TO THE RT GROIN WAS REMOVED AT 1245. NO BLEEDING NOTED. GAUZE/TEGADERM DRESSING C/D/I. LUNG SOUNDS HAVE SCATTERED WHEEZES. ABDOMEN SOFT/NON TENDER WITH ACTIVE BOWEL SOUNDS. NO SWELLING NOTED TO BLE. O2 SATURATION HAS MAINTAINED 93-95% ON VAPOTHERM 20 L 40% FIO2. CALLED AND ORDERED FOR PT TO HAVE HER FIRST DOSE OF XARELTO AT 1400 AND THE NEXT DOSE AT 2300 THIS EVENING. PHARMACY NOTIFIED OF THE TIME CHANGE. CATH VSS. WILL CONTINUE TO MONITOR.
[2021-06-16 16:42] LABS: Activated Partial Thrombo Time 104.8 seconds (22.8-30.6)
[2021-06-16 21:58] LABS: Activated Partial Thrombo Time 90.2 seconds (22.8-30.6)
--- NOTE | 2021-06-16 22:03 | PC.NURSE ---
Per Esequiel at [facility] decrease Heparin Drip to 700units (14mL/hr) until after 2nd dose of Xarelto to be given at 2300 then stop Heparin drip at 2330.
[2021-06-17] VITALS: PULSE 100
[2021-06-17 04:00] VITALS: PULSE 100; O2SAT 94
[2021-06-17 06:00] VITALS: BMI 28.8
[2021-06-17 06:34] LABS: Basophils # 0.1 K/mm3 (0-0.2); Basophils % 1.4 % (0.1-2.0); Eosinophils # 0.2 K/mm3 (0.0-0.4); Eosinophils % 2.2 % (0.1-12.0); Hemoglobin 10.6 g/dL (12.2-16.2); Lymphocytes # 1.1 K/mm3 (0.7-4.5); Lymphocytes % 12.7 % (10-50); Mean Corpuscular Hemoglobin 31.1 pg (27.0-31.2); Mean Corpuscular Volume 94.3 fl (81-99); Mean Platelet Volume 9.6 fl (7.4-10.4); Monocytes # 0.5 K/mm3 (0.1-1.0); Monocytes % 5.7 % (1.7-9.3); Neutrophils # 7.1 K/mm3 (1.8-7.8); Neutrophils % 78.1 % (37.0-80.0); Platelet Count 172 K/mm3 (142-424); Red Blood Count 3.39 M/mm3 (4.20-5.40); Red Cell Distribution Width 14.8 % (11.5-17.5); White Blood Count 9.1 K/mm3 (4.8-10.8)
[2021-06-17 07:20] LABS: Chloride 104 mmol/L (98-107); Sodium 135 mmol/L (136-145)
[2021-06-17 07:21] LABS: Potassium 3.8 mmoL/L (3.5-5.1)
[2021-06-17 07:23] LABS: Blood Urea Nitrogen 14 mg/dl (7-17); Creatinine Clearance Estimated 55 mL/min (50-200); Estimated Glomerular Filt Rate 96 ml/min (>60); GFR (African American) 116 ML/MIN (>60)
[2021-06-17 07:24] LABS: Anion Gap 10.8 mEq/L (5-15); Calcium 7.9 mg/dl (8.4-10.2); Carbon Dioxide 24 mmol/L (22.0-30.0); Glucose 178 mg/dl (74-100)
--- NOTE | 2021-06-17 07:27 | HMH.ACPN2 ---
Internal Medicine - PN: Subj *Date: 06/17/21 *Time: 07:27 Exam Vital signs and Labs for Last 24 Hours: Temp Pulse Resp BP Pulse Ox 98.1 F 100 H 18 142/67 H 96 06/16/21 11:20 06/17/21 04:00 06/16/21 17:35 06/16/21 17:35 06/16/21 20:00 Laboratory Results - last 24 hr 06/16/21 15:10: APTT 104.8 H* D 06/16/21 21:21: APTT 90.2 H* D 06/17/21 06:00: WBC 9.1 D, RBC 3.39 L D, Hgb 10.6 L, Hct 32.0 L, MCV 94.3, MCH 31.1, MCHC 33.0, RDW 14.8, Plt Count 172 D, MPV 9.6, Neut % (Auto) 78.1, Lymph % (Auto) 12.7, [place] % (Auto) 5.7, Eos % (Auto) 2.2, Baso % (Auto) 1.4, Neut # (Auto) 7.1, Lymph # (Auto) 1.1, [place] # (Auto) 0.5, Eos # (Auto) 0.2, Baso # (Auto) 0.1 I & O for Last 24 hours: Intake & Output 06/14/21 06/15/21 06/16/21 06/17/21 23:59 23:59 23:59 23:59 Intake Total 281 / 281 Output Total 900 / 900 Balance -619 / -619 Weight 78.471 kg 78.471 kg 78.471 kg Assessment and Plan (1) Pulmonary embolism Status: Acute Qualifiers: Pulmonary embolism type: other Chronicity: acute Acute cor pulmonale presence: without acute cor pulmonale Qualified Code(s): I26.99 - Other pulmonary embolism without acute cor pulmonale Category: Medical Code(s): I26.99 - Other pulmonary embolism without acute cor pulmonale (2) Autoimmune hepatitis treated with steroids Status: Acute Category: Medical Code(s): K75.4 - Autoimmune hepatitis (3) Liver mass Status: Acute Category: Medical Code(s): R16.0 - Hepatomegaly, not elsewhere classified (4) History of left breast cancer Status: Acute Category: Medical Code(s): Z85.3 - Personal history of malignant neoplasm of breast (5) History of right breast cancer Status: Acute Category: Medical Code(s): Z85.3 - Personal history of malignant neoplasm of breast (6) History of lung cancer Status: Acute Category: Medical Code(s): Z85.118 - Personal history of other malignant neoplasm of bronchus and lung (7) Elevated troponin Status: Acute Category: Medical Code(s): R77.8 - Other specified abnormalities of plasma proteins
[2021-06-17 08:00] VITALS: PULSE 112; TEMP 37.1
--- NOTE | 2021-06-17 08:11 | HMH.PNCARD ---
Subjective Date: 06/17/21 Time: 08:11 Principal diagnosis: PE Interval history: 81-year-old white female in bed in no acute distress. She states she feels much better than she did on admission. She is on nasal cannula oxygen at 4 L/min with oxygen saturation at 100%. Telemetry shows sinus rhythm at 100 bpm. No arrhythmias noted on telemetry review overnight. Patient is asking about going home. Multiple questions from patient and daughter answered. Exam Vital signs and Labs for Last 24 Hours: Temp Pulse Resp BP Pulse Ox 98.1 F 100 H 18 142/67 H 94 L 06/16/21 11:20 06/17/21 04:00 06/16/21 17:35 06/16/21 17:35 06/17/21 04:00 Laboratory Results - last 24 hr 06/16/21 15:10: APTT 104.8 H* D 06/16/21 21:21: APTT 90.2 H* D 06/17/21 06:00: WBC 9.1 D, RBC 3.39 L D, Hgb 10.6 L, Hct 32.0 L, MCV 94.3, MCH 31.1, MCHC 33.0, RDW 14.8, Plt Count 172 D, MPV 9.6, Neut % (Auto) 78.1, Lymph % (Auto) 12.7, [place] % (Auto) 5.7, Eos % (Auto) 2.2, Baso % (Auto) 1.4, Neut # (Auto) 7.1, Lymph # (Auto) 1.1, [place] # (Auto) 0.5, Eos # (Auto) 0.2, Baso # (Auto) 0.1 06/17/21 06:00: Sodium 135 L, Potassium 3.8, Chloride 104, Carbon Dioxide 24, Anion Gap 10.8, BUN 14, Creatinine 0.60 D, Estimated Creat Clear 55, Estimated GFR 96, Est GFR ( Amer) 116 D, Glucose 178 H, Calcium 7.9 L I & O for Last 24 hours: Intake & Output 06/14/21 06/15/21 06/16/21 06/17/21 11:59 11:59 11:59 11:59 Intake Total 0 / 0 281 / 281 Output Total 400 / 400 500 / 500 Balance -400 / -400 -219 / -219 Weight 173 lb 172 lb 15.983 oz - Constitutional no acute distress - *Routine Respiratory Exam Present: CTA bilaterally - *Routine Cardiovascular Exam Present: RRR, tachycardia - *Routine Extremities Exam Absent: cyanosis, clubbing, edema - *Routine Neurological Exam Present: alert, oriented X3 Progress Note: A&P (1) Pulmonary embolism Status: Acute (2) Autoimmune hepatitis treated with steroids Status: Acute (3) Liver mass Status: Acute (4) History of left breast cancer Status: Acute (5) History of right breast cancer Status: Acute (6) History of lung cancer Status: Acute (7) Elevated troponin Status: Acute Assessment and Plan for All Diagnoses:: 1. Pulmonary emboli status post pulmonary embolectomy, patient is on Xarelto 15 mg twice daily and will need to continue for a total of 21 days and then switch to Xarelto 20 mg daily thereafter. 2. Liver mass with plans for work-up with her oncologist. Patient has a PET scan scheduled for next week. 3. Elevated troponin felt likely due to right heart strain from pulmonary emboli. Preliminary images of echocardiogram show preserved left ventricular ejection fraction. Official report is pending. Okay from cardiology standpoint for discharge home when primary team is ready. Nothing further to add. Please call if needed.
--- NOTE | 2021-06-17 08:55 | HMH.DCSUM ---
General - General Admission date:: 06/15/21 Discharge date: 06/17/21 HPI HPI: In summary, the patient is an 81-year-old female presenting for evaluation of progressive dyspnea and hypoxia by EMS transport from home. She is in acute respiratory distress with tachypnea, 2 word dyspnea, symmetric and clear breath sounds bilaterally with hypoxia in the 80s on room air, mid 90s on nonrebreather mask. Physical exam demonstrates an uncomfortable appearing female with normal cardiac exam, soft nontender abdomen, normal extremity exam, normal peripheral perfusion. Differential diagnosis includes but is not limited to COVID-19, pneumonia, acute coronary syndrome, pulmonary embolism. We will place the patient on high flow nasal cannula for work of breathing and hypoxia, administer small bolus of IV fluids, obtain broad laboratory analysis, chest x-ray, CT pulmonary embolism and reassess clinically. Reassessment: Patient demonstrates significant improvement since being placed on high flow nasal cannula, 30 L, 60% FiO2. Tachycardia has improved, blood pressure still is within normal limits. Laboratory analysis demonstrates elevated troponin to 0.3, remainder of laboratory analysis unremarkable. CT PE demonstrates large bilateral pulmonary embolism with evidence of right heart strain. Cardiology was consulted, and they state the patient is appropriate for progressive admission with heparin bolus and infusion ordered, with plans to take to the specialist employee labor relations for intervention in the morning. Care of the patient was discussed with her primary care physician and will admit to Dr. Roman after discussion with Dr. Fine for heparin drip, continued respiratory support and coordination of care needs related to submassive pulmonary embolism. Above note per ER physician. Additional history includes the patient has had several malignancies, bilateral mastectomy for breast cancer, right upper lobectomy for lung cancer and currently is being worked up for liver mass but has declined biopsy. Also is on medication for autoimmune hepatitis. Has had VTE in the remote past but is currently not on any anticoagulation medication. Hospital Course Hospital Course: Patient presented with shortness of breath, noted to have bilateral PEs with right heart strain on imaging. Taken urgently to the [facility] for intervention. Cardiology consulted for embolectomy. Successfully removed portions but not full clot burden due to chronic nature. Initiated on heparin drip and started on Xarelto. Patient tolerating Xarelto 15 mg twice a day at this point. We will plan to continue Xarelto twice daily for 21 days and transition to 20 mg daily thereafter. Will need to be on anticoagulation lifelong given history of DVT previously, bilateral PE, and significant history of malignancy. Patient feeling better this morning. Daughter at bedside. Questions answered. Additional finding on work-up concerning for liver mass. Has follow-up with her oncologist, obtaining PET scan next week Elevated troponin felt likely due to right heart strain from pulmonary emboli. Preliminary images of echocrdiogram show preserved left ventricular ejection fraction. Official report is pending. Will follow-up at outpatient visit. Medically stable for discharge home. Physical therapy assessed patient, patient at baseline level of function. Will make sure she has home health and oxygen. Objective Vital signs: Temp Pulse Resp BP Pulse Ox 98.1 F 100 H 18 142/67 H 94 L 06/16/21 11:20 06/17/21 04:00 06/16/21 17:35 06/16/21 17:35 06/17/21 04:00 Narrative: - Constitutional NAD on 4L NC O2, not dyspneic - *Routine HEENT Exam Head: Present: normocephalic Eye: Present: EOMI, PERRL ENT: Present: mucous membranes moist - *Routine Neck Exam Present: supple. Absent: lymphadenopathy - *Routine Respiratory Exam Present: CTA bilaterally - *Routine Cardiovascular Exam Present: ta
--- NOTE | 2021-06-17 09:49 | SW/DCPLANNER ---
Addendum entered by Radha Arshad 06/23/21 12:48: Guerda with [facility] has requested patient information per family request. Patient information has been faxed. Addendum entered by Radha Arshad 06/17/21 12:30: Zabrina de la torre/ [facility] stated that services will begin tomorrow for this patient. Addendum entered by Radha Arshad 06/17/21 10:42: Family has now requested home health services. Patient information/order has been faxed to [facility]. I will follow up with Zabrina de la torre/ [facility] once patient information is reviewed. Jessika de la torre/ [facility] has stated that BSC and portable O2 will be delivered to [facility] this AM. Original Note: I spoke with this patient this AM regarding discharge plans. PT/OT has evaluated this patient and feels as if patient is at baseline and safe to return home. I offered patient home health services: refused due to offering no assistance for her cat at home. Patient also stated that she has a rollator walker and a cane but will need a bedside commode. Patient will also need home O2/portable ordered at discharge. Patient information/order has been faxed to [facility] for home O2/portable and BSC. Patient will discharge home later today. I will also provide this patient with a private sitters list at discharge.
[2021-06-17 09:52] VITALS: O2SAT 86
--- NOTE | 2021-06-17 09:55 | HMH.OTEV ---
OT Inpatient Evaluation Rehab OT IP Evaluation Start: 06/17/21 09:47 Freq: ONCE Status: Complete Protocol: Document 06/17/21 09:51 JACBO (Rec: 06/17/21 09:54 [facility] [id number] Rehab OT IP Assessment Subjective History Pt oriented x 3 on arrival. Pt agreeable to engage in therapy evaluation. Pt's daughter present for evaluation. Pt was admitted via ED on 06/15/21 due to dyspnea and hypoxia. Pt has a past medical history of Lung and Breast CA. Pt reports prior to being hospitalized she lived at home alone. Pt claims she was independent with all ADLs and IADLs. She used a rollator at times when she was feeling weak during ambulation. Pt still drove. Subjective I did what I needed to. Objective Patient Orientation Person,Place,Birthday Upper Extremity Gross ROM WFL Bed Mobility bed mobility-scooting,bed mobility - supine/sit,bed mobility - rolling Assist Level Supervision/Stand by Transfer Training Sit/Stand Transfer Assist Level Supervision/Stand by Chair Transfer Ability Supervision/Stand by Chair Transfer Technique Sit to/from Ambulatory Chair Transfer Assistive Devices Rolling Walker Rehab OT IP prob,goals,plan Problems Date of Evaluation: 06/17/21 Rehab Potential Rehab Potential Innapropriate for Skilled Therapy Discharge Plan OT Discharge Plan Pt appears to be at baseline at this time. Pt is safe to return home once medically stable per doctor. Eval Complexity Eval Charge Codes 70184 - Moderate Complexity G Codes G -code Required No PHYSICIAN CERTIFICATION: I certify the specified therapy services for Kalie Cope Farzanapriscilla are required, authorized, and reviewed every 30 days.
--- NOTE | 2021-06-17 09:59 | PC.NURSE ---
Patient requires bedside commode upon discharge because of gait and mobility issues and also distance at home to bathroom. spoke with discharge team
--- NOTE | 2021-06-17 10:03 | P.CONPHA_ITS ---
[facility] Pharmacy Heparin Dosing - Demographic Data Admission date:: 06/15/21 Date: 06/16/21 Time: 15:00 Allergies/Adverse Reactions: Allergies Allergy/AdvReac Type Severity Reaction Status Date / Time No Known Allergies Allergy Verified 06/15/21 14:27 Height: 1.65 m Weight: 78.471 kg - Indication Medication therapy:: Heparin Patient Problems: Current Active Problems Pulmonary embolism (Acute) Autoimmune hepatitis treated with steroids (Acute) Liver mass (Acute) History of left breast cancer (Acute) History of right breast cancer (Acute) History of lung cancer (Acute) Elevated troponin (Acute) CVA?: No Bleeding problem?: No Kidney disease?: No ND?: No Desired PTT range:: Other Comments:: 50-75 - Labs Anticoagulation Lab Results:: 06/17/21 06:00 Hgb 10.6 L Hct 32.0 L Plt Count 172 D - Monitoring Dose Monitor 1 Date: 06/15/21 Time: 14:45 PTT Result:: 23.9 Infusion Rate:: HEPARIN BOLUS 7700 UNITS IV AND START DRIP AT HEPARIN 1500 UNITS/HR Dose Monitor 2 Date: 06/15/21 Time: 19:52 PTT Result:: 139.0 Infusion Rate:: CONTINUE WITH HEPARIN 1250 UNITS/HR Dose Monitor 3 Date: 06/16/21 Time: 00:30 PTT Result:: 139.0 Infusion Rate:: DECREASE HEPARIN DRIP RATE TO 1000 UNITS/HR. Dose Monitor 4 Date: 06/16/21 Time: 06:00 PTT Result:: 51.5 Infusion Rate:: INCREASE RATE TO 1100 UNITS/HR Comment:: PATIENT IS GOING TO [facility] Dose Monitor 5 Date: 06/16/21 Time: 11:00 Infusion Rate:: HEPARIN DRIP WAS RESTARTED IN [facility] POST CATH. WANTS 2 DOSE OF XARELTO 15 MG GIVEN ~12 HOURS APART THEN HEPARIN DRIP STOPPED AT THAT TIME. PATIENT RECEIVED HEPARIN 7800 UNIT BOLUS IN [facility]. Dose Monitor 6 Date: 06/16/21 Time: 15:00 PTT Result:: 104.0 Infusion Rate:: DRIP RATE WAS CONTINUED AT HEPARIN 1100 UNITS/HR Dose Monitor 7 Date: 06/16/21 Time: 21:00 PTT Result:: 90.2 Infusion Rate:: HEPARIN RATE DECREASED OVERNIGHT TO 700 UNITS/HR AND HEPARIN DRIP STOPPED AT 2330 AFTER 2ND DOSE OF XARELTO WAS GIVEN. - Core Measures Is INR > or = 2 at discharge?: No Most Recent Labs:: Laboratory Results - last 24 hr 06/16/21 15:10: APTT 104.8 H* D 06/16/21 21:21: APTT 90.2 H* D 06/17/21 06:00: WBC 9.1 D, RBC 3.39 L D, Hgb 10.6 L, Hct 32.0 L, MCV 94.3, MCH 31.1, MCHC 33.0, RDW 14.8, Plt Count 172 D, MPV 9.6, Neut % (Auto) 78.1, Lymph % (Auto) 12.7, [place] % (Auto) 5.7, Eos % (Auto) 2.2, Baso % (Auto) 1.4, Neut # (Auto) 7.1, Lymph # (Auto) 1.1, [place] # (Auto) 0.5, Eos # (Auto) 0.2, Baso # (Auto) 0.1 06/17/21 06:00: Sodium 135 L, Potassium 3.8, Chloride 104, Carbon Dioxide 24, Anion Gap 10.8, BUN 14, Creatinine 0.60 D, Estimated Creat Clear 55, Estimated GFR 96, Est GFR ( Amer) 116 D, Glucose 178 H, Calcium 7.9 L If INR was < than 2.0 why was therapy stopped?: XARELTO STARTED Were Heparin and Warfarin started on the same day?: No Comments:: XARELTO STARTED
--- NOTE | 2021-06-17 10:16 | HMH.PTEV ---
Physical Therapy Evaluation Rehab PT IP Evaluation Start: 06/17/21 08:50 Freq: ONCE Status: Active Protocol: Document 06/17/21 09:51 JONAS (Rec: 06/17/21 10:15 JONAS [id number]) Subjective/History History History This is the initial evaluation for Kalie Ash. Pt is an 81 y/o female admitted to [facility] for evaluation of progressive dyspnea and hypoxia by EMS transport from home. Pt was put on supplemental O2 to aid in O2 stats. Pt is on a heprin drip. Pt's family member was in room upon arrival. - note done by Arabella Green, SPT Subjective Subjective Pt states she was living at home alone before [facility] admission. Pt reports she does not get up and walk much due to weakness in her legs and difficulty breathing. Pt states she was not on supplemental O2 at home but that she is being sent home with it. Pt reports that when she does get up and walk that she uses her rollator. Pt reports she was independent in all her ADL's before this medical episode. Rehab PT IP Eval Objective Appearance Patient Behavior Appropriate,Cooperative Patient Orientation Person,Place,Name,Birthday, Situation Difficulty following instructions none Speech Pattern Clear,Appropriate,Coherent Ambulation Patient Able to Ambulate Yes Ambulation Observation IP General Gait Pattern Observation No Deviations/Normal Ambulation Distance (feet) 10 Ambulation Assistive Device Rolling Walker Ambulation Ability Supervision/Stand by Balance Ability to Arise Able, w/o using arms Sitting Balance Steady, safe Standing Balance Steady, wide stance Dynamic Sitting Balance Ability Normal Dynamic Standing Balance Ability Good Transfers Bed Transfer Ability Independent Sit to Stand Bed Transfer Ability Independent MMT RLE PT MMT WFL LLE PT MMT WFL Rehab PT IP prob,goals,plan Problems Date of Evaluation: 06/17/21 PT IP Problems
== END 2021-06-17 13:42 | disposition home health service (06) | DRG 163 ==
LOC: ER 17:49 → 2ND 19:57
PROVIDERS: Internal Medicine; Admitting Provider Family Medicine; Emergency Provider Student in an Organized Health Care Education/Training Program; PCP Nurse Practitioner Family; Visit Provider Internal Medicine Adolescent Medicine
PROC: 02CR4ZZ Extirpation of Matter from Left Pulmonary Artery, Percutaneous Endoscopic Approach (ICD-10-PCS; principal; 2021-06-16 08:15)
DX: I26.94 Multiple subsegmental thrombotic pulmonary emboli without acute cor pulmonale (principal); J96.01 Acute respiratory failure with hypoxia; Z85.118 Personal history of other malignant neoplasm of bronchus and lung; Z87.891 Personal history of nicotine dependence; K75.4 Autoimmune hepatitis; R77.8 Other specified abnormalities of plasma proteins; Z90.2 Acquired absence of lung [part of]; Z85.3 Personal history of malignant neoplasm of breast
CPT/HCPCS: 36415; 37184; 37185; 71275; 80048; 80053; 84443; 84484; 85007; 85025; 85610; 85730; 87040; 93005; 93306; 93308; 94760; 96365; 96367; 96375; 97161; 97166; 99284; C1757; C1769; C1894; C9803; J1644; Q9967; U0003; U0005